=== PATIENT | female | born 1980 | race Caucasian/White ===

== ENCOUNTER 2020-03-07 08:46 | Day surgery (SDC) | payer BC, OTHER ==
[2020-03-03 16:29] VITALS: BMI 38.3
[2020-03-07 10:57] VITALS: BP 112/74; PULSE 67; TEMP 98
== END 2020-03-07 10:56 | disposition home or self-care (01) ==
LOC: FASU-ENDO 08:46
PROVIDERS: ATTEND Internal Medicine Gastroenterology
PROC: 0DJD8ZZ Inspection of Lower Intestinal Tract, Via Natural or Artificial Opening Endoscopic (ICD-10-PCS; principal; 2020-03-07 09:52)
DX: R93.3 Abnormal findings on diagnostic imaging of other parts of digestive tract (principal); K64.1 Second degree hemorrhoids
CPT/HCPCS: 84703